=== PATIENT | female | born 1975 | race Caucasian/White ===

== ENCOUNTER 2019-03-18 11:38 | Emergency (ER) | payer BC ==
[~2019-03-18] VITALS: Ht 185.4 cm; Wt 118.2 kg
[2019-03-18 11:43] VITALS: Ht 185.4 cm; Wt 118.2 kg
[2019-03-18] MEDS ORDERED: BUPRENORPHIN-N1 EACH SL (11:45)
[2019-03-18 12:10] LABS: BASOPHILS 0.6 % (0-2); EOSINOPHILS 2.8 % (0-7); HEMATOCRIT 36.9 % (36.0-48.0); IMMATURE GRANULOCYTES 0.5 % (0-5); LYMPHOCYTES 24.9 % (15-50); MCH 27.2 pg (26.0-34.0); MCHC 32.5 g/dL (31.0-37.0); MCV 83.7 fL (80.0-100.0); MEAN PLATELET VOLUME 9.9 fL (7.4-10.4); MONOCYTES 4.4 % (2-11); NEUTROPHILS 66.8 % (40-80); PLATELET COUNT 301 10x3/uL (130-400); RBC 4.41 10x6/uL (4.00-5.40); RDW 14.8 % (11.5-14.5); WBC 8.6 10x3/uL (4.8-10.8)
[2019-03-18 12:24] LABS: ALBUMIN 3.5 g/dL (3.4-5.0); ALKALINE PHOSPHATASE 68 U/L (46-116); ALT (SGPT) 13 U/L (10-68); BILIRUBIN - TOTAL 0.14 mg/dL (0.2-1.3); CALC OSMOLALITY 276 mosm/kg (275-300); CALCIUM 8.8 mg/dL (8.5-10.1); CARBON DIOXIDE 32.2 mmol/L (21.0-32.0); CHLORIDE - SERUM 99 mmol/L (98-107); CREATININE - SERUM 0.8 mg/dL (0.6-1.3); GLUCOSE 87 mg/dL (74-106); POTASSIUM - SERUM 3.9 mmol/L (3.5-5.1); PROTEIN - SERUM 7.5 g/dL (6.4-8.2); SODIUM 139 mmol/L (136-145); UREA NITROGEN 13 mg/dL (7-18); eGFR NON AFRICAN AMERICAN 83 mL/min (90-120)
[2019-03-18 12:29] LABS: APTT 27.7 SECONDS (22.8-39.4); INR 0.95 (0.85-1.17); PROTIME 12.2 SECONDS (11.6-15.0)
[2019-03-18 12:36] LABS: CKMB 1.8 U/L (0.0-3.6); CREATINE KINASE 60 UL (21-215); PRO BNP 398 pg/mL (0-125)
[2019-03-18 12:37] LABS: TROPONIN-I < 0.017 ng/mL (0.000-0.060)
[2019-03-18 12:40] LABS: D-DIMER-QUANTITATIVE 0.39 ug/mLFEU (0.20-0.54)
[2019-03-18 14:05] VITALS: BP 178/94
[2019-03-18] MEDS ORDERED: LISINOPRIL-HCT1 EAC8 PO (14:54)
== END 2019-03-18 15:12 | disposition left against medical advice (07) ==
LOC: D.ER 11:38
PROVIDERS: Family Medicine
DX: I10 Essential (primary) hypertension (principal)